=== PATIENT | male | born 1995 | race Two or more races ===

== ENCOUNTER 2019-07-21 23:26 | Emergency (ER) | payer OTHER ==
[~2019-07-21] VITALS: Ht 180.3 cm; Wt 83.9 kg
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
[2019-07-22] MEDS ORDERED: KETOROLAC TROMETHAMINE INJ 60 MG/2 ML VIAL IM ONE
[2019-07-22] MEDS ORDERED: KETOROLAC TROMETHAMINE INJ 30 MG/ML VIAL ONE (00:18)
--- NOTE | 2019-07-22 01:21 | NUR ---
Patient discharged to home in stable condition. Written and verbal after care instructions given. Patient verbalizes understanding of instruction. Pt ambulatory with a steady gait
[2019-07-22 01:22] VITALS: BP 143/78
== END 2019-07-22 01:22 | disposition home or self-care (01) ==
LOC: ER 23:28
DX: S46.812A Strain of other muscles, fascia and tendons at shoulder and upper arm level, left arm, initial encounter (principal); S16.1XXA Strain of muscle, fascia and tendon at neck level, initial encounter; S09.8XXA Other specified injuries of head, initial encounter; V49.59XA Passenger injured in collision with other motor vehicles in traffic accident, initial encounter; Y93.89 Activity, other specified; Y92.413 State road as the place of occurrence of the external cause; Y99.8 Other external cause status
CPT/HCPCS: 72050; 73030; 96372; 99284; J1885

== ENCOUNTER 2019-09-07 14:30 | Emergency (ER) | payer OTHER ==
[~2019-09-07] VITALS: Ht 180.3 cm; Wt 85.3 kg
[2019-09-07] MEDS ORDERED: IBUPROFEN 600 MG TABLET PO ONE ×2 (15:00→15:02)
--- NOTE | 2019-09-07 15:26 | NUR ---
Patient a/ox4, breathing even and unlabored, no sob noted, needs attended, ambulatory with steady gait. Patient discharged to home in stable condition. Written and verbal after care instructions given. Patient verbalizes understanding of instruction.
[2019-09-07 15:28] VITALS: BP 138/82
== END 2019-09-07 15:28 | disposition home or self-care (01) ==
LOC: ER 14:33
DX: J06.9 Acute upper respiratory infection, unspecified (principal)